=== PATIENT | female | born 1950 | race Asian ===

== ENCOUNTER 2019-04-20 06:00 | Day surgery (SDC) | payer MEDICARE, MEDICAID ==
[~2019-04-20] VITALS: Ht 154.9 cm; Wt 68.6 kg
[~2019-04-20 06:00] MED LIST: ADV100 IH; CETI10TA59 PO; FLUT16H NASAL; MONT10TA21 PO; PSEU-191 PO; SODIUM CHLORIDE 0.9% 1,000 ML ONE
[2019-04-20] MEDS ORDERED: LIDOCAINE 2% 30 ML JELLY TP ONE (06:01)
[2019-04-20] MEDS ORDERED: ALBUTEROL SULFATE 2.5 MG/0.5 ML NEB SOLUTION NEB ONE (06:01)
[2019-04-20] MEDS ORDERED: BENZOCAINE 20% 50 MCG/SPRAY 57 GM TP ONE (06:01)
[2019-04-20] MEDS ORDERED: LIDOCAINE 4% 50 ML SOLUTION TP ONE (06:01)
[2019-04-20] MEDS ORDERED: SODIUM CHLORIDE 0.9% 1,000 ML IV ONE (06:30)
[2019-04-20] MEDS ORDERED: FentaNYL CITRATE-PF 100 MCG/2 ML VIAL ONE (08:10)
[2019-04-20] MEDS ORDERED: MIDAZOLAM HCL 2 MG/2 ML VIAL ONE (08:10)
[2019-04-20] MEDS ORDERED: MethylPREDNISolone SOD SUCC 125 MG/2 ML VIAL IVP ONE (08:45)
[2019-04-20] MEDS ORDERED: MethylPREDNISolone SOD SUCC 125 MG/2 ML VIAL ONE (09:22)
[2019-04-20] MEDS ORDERED: NALOXONE HCL 0.4 MG/ML VIAL ONE (09:59)
[2019-04-20] MEDS ORDERED: ONDANSETRON HCL 4 MG/2 ML VIAL ONE (10:06)
[2019-04-20] MEDS ORDERED: ONDANSETRON HCL 4 MG/2 ML VIAL IVP ONE (10:15)
[2019-04-20] MEDS ORDERED: OXYGEN THERAPY IH SCH (20:00)
== END 2019-04-20 12:20 | disposition home or self-care (01) ==
LOC: SURGERY 06:00
PROVIDERS: ATTEND Internal Medicine Critical Care Medicine
DX: R05 Cough (principal); J34.89 Other specified disorders of nose and nasal sinuses; J98.8 Other specified respiratory disorders; J38.4 Edema of larynx; Z88.2 Allergy status to sulfonamides; Z91.011 Allergy to milk products; Z91.09 Other allergy status, other than to drugs and biological substances
CPT/HCPCS: 31623; 31624; 71045; 87015; 87070; 87101; 87205; 87206; 87220; J2250; J2310; J2405; J2930; J3010; J7030; 88108; 88312